=== PATIENT | female | born 1980 | race Caucasian/White ===

== ENCOUNTER 2019-12-25 05:29 | Emergency (ER) | payer OTHER, SELFPAY ==
[2019-12-25] VITALS (19 sets, daily range): BP systolic 83–118; BP diastolic 55–81; PULSE 91–118; RESP 9–32; TEMP 36.7; O2SAT 97–100
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
--- NOTE | 2019-12-25 05:55 | PC.NURSE ---
All belongings removed and placed in secured cabinet.
[2019-12-25 05:59] LABS: Basophils Percent Auto 1.3 % (0.2-1.2); Eosinophils Absolute Auto 0.1 K/mm3 (0-0.3); Eosinophils Percent Auto 1.6 % (0-4.4); Hematocrit 39.5 % (37.0-47.0); Immature Granulocyte Absolute 0.01 K/mm3 (0.00-0.031); Immature Granulocyte Percent A 0.3 % (0-0.5); Lymphocytes Absolute Auto 1.53 K/mm3 (0.9-3.2); Mean Corpuscular HGB Conc 32.9 g/dl (32-36); Mean Corpuscular Hemoglobin 29.9 pg (26-34); Mean Corpuscular Volume 90.8 fl (80-100); Mean Platelet Volume 11.1 fl (7.4-10.4); Monocytes Absolute Auto 0.2 K/mm3 (0.1-0.6); Monocytes Percent Auto 7.8 % (2.6-8.5); Neutrophils Absolute Auto 1.2 K/mm3 (1.3-6.7); Platelet Count Result 280 k/mm3 (150-375); Red Blood Count 4.35 M/mm3 (4.2-5.4); Red Cell Distribution Width 12.2 % (11.5-14.5); White Blood Count 3.1 K/mm3 (4.5-10.0)
--- NOTE | 2019-12-25 05:59 | PC.NURSE ---
Patient attempted to provide urine sample but was unable at this time. Patient aware urine sample is needed, will attempt again. IV fluids currently infusing by EMS.
--- NOTE | 2019-12-25 06:08 | ECG_ITS ---
Measurements Intervals [place] Rate: 119 P: 52 GA: 138 QRS: 70 QRSD: 93 T: 40 QT: 334 QTc: 470 Interpretive Statements SINUS TACHYCARDIA POSSIBLE LEFT ATRIAL ENLARGEMENT ABNORMAL ECG Electronically Signed On 12-25-2019 7:40:22 CDT by Obie Alonso D.O.
[2019-12-25 06:10] LABS: Acetaminophen < 10 ug/mL (10-30); Ethanol 197 mg/dL (<10); Salicylate < 1.0 mg/dL (2-20)
[2019-12-25 06:15] LABS: Alanine Aminotransferase 16 U/L (4-35); Albumin Level 4.3 g/dL (3.5-5.1); Alkaline Phosphatase 79 U/L (38-126); Aspartate Amino Transferase 24 U/L (14-36); Bilirubin,Total 0.2 mg/dL (0.2-1.3); Blood Urea Nitrogen 7 mg/dL (7-17); Calcium 9.2 mg/dL (8.4-10.2); Carbon Dioxide 30 mmol/L (22-30); Chloride 102 mmol/L (98-107); Estimated Glomerular Filt Rate > 60; Glucose 100 mg/dL (65-105); Magnesium 1.6 mg/dL (1.6-2.3); Phosphorus 2.9 mg/dL (2.5-4.5); Potassium 3.3 mmol/L (3.4-5.0); Sodium 139 mmol/L (137-145)
[2019-12-25] MEDS: SODIUM CHLORIDE 0.9% IV 1,000 ML 999 ML IV CONT (06:25)
[2019-12-25] MEDS: THIAMINE HCL 200 MG/2 ML VIAL 100 MG IV PUSH (06:25)
[2019-12-25] MEDS: ONDANSETRON INJ 4 MG/2 ML VIAL IV PUSH (06:25)
--- NOTE | 2019-12-25 07:23 | PC.NURSE ---
Bedside report given to AMBROCIO Jenkins.
[2019-12-25 07:26] LABS: Free T4 Free Thyroxine Reflex 1.01 ng/dL (0.78-2.19)
--- NOTE | 2019-12-25 07:34 | PC.NURSE ---
Care assumed at this time, bedside report given by AMBROCIO Pickett
[2019-12-25 07:43] LABS: Add Urine Microscopic? YES; Appearance Urine Clear (Clear); Bilirubin Urine Negative (Negative); Blood Urine 3+ (Negative); Color Urine Colorless (Yellow); Glucose Urine UA Negative (Negative); Ketones Urine Negative (Negative); Leukocyte Esterase Ur Negative LEU/UL (Negative); Nitrate Urine Negative (Negative); Protein Urine Negative (Negative); RBC Urine 0-2 /hpf (0-2); Specific Grav Ur 1.006 (1.001-1.035); Squamous Epithelial Cell Urine Rare /hpf (Few); Urobilinogen Urine Negative mg/dL (<2.0); WBC Urine 0-3 /hpf
[2019-12-25 07:57] LABS: Amphetamine Screen Urine Negative (Negative); Barbiturate Screen Urine Negative (Negative); Benzodiazepines Screen Urine Negative (Negative); Cannabinoid Screen Urine Negative (Negative); Cocaine Screen Urine Negative (Negative); Methadone Screen Urine Negative (Negative); Opiate Screen Urine Negative (Negative); Phencyclidine Screen Urine Negative (Negative)
--- NOTE | 2019-12-25 08:02 | PC.NURSE ---
Called lab to add on CK.
[2019-12-25 08:15] LABS: Creatine Kinase 137 U/L (30-135)
[2019-12-25 08:30] LABS: Total Triiodothyronine (T3) 1.81 NG/ML (0.97-1.69)
[2019-12-25 11:13] LABS: Ethanol 101 mg/dL (<10)
[2019-12-25] MEDS: LACTATED RINGERS 1,000 ML 999 ML IV CONT (11:24)
[2019-12-25 13:38] LABS: Ethanol 53 mg/dL (<10)
--- NOTE | 2019-12-25 14:06 | PC.NURSE ---
Spoke with poison control. recommends EKG. .
--- NOTE | 2019-12-25 14:09 | ECG_ITS ---
Measurements Intervals [place] Rate: 104 P: 54 AK: 137 QRS: 69 QRSD: 77 T: 63 QT: 344 QTc: 454 Interpretive Statements SINUS TACHYCARDIA BORDERLINE ECG Electronically Signed On 12-25-2019 15:17:35 CDT by Obie Alonso D.O.
[2019-12-25 14:21] LABS: Acetaminophen < 10 ug/mL (10-30); Salicylate < 1.0 mg/dL (2-20)
== END 2019-12-25 16:43 | disposition home or self-care (01) ==
PROVIDERS: Emergency Medicine; Emergency Provider General Practice; PCP Family Medicine
DX: F10.129 Alcohol abuse with intoxication, unspecified (principal); Y90.5 Blood alcohol level of 100-119 mg/100 ml; F98.8 Other specified behavioral and emotional disorders with onset usually occurring in childhood and adolescence; G62.9 Polyneuropathy, unspecified; F40.10 Social phobia, unspecified; R00.0 Tachycardia, unspecified; R94.31 Abnormal electrocardiogram [ECG] [EKG]
CPT/HCPCS: 36415; 51701; 80053; 80307; 81001; 81025; 82550; 82948; 83735; 84100; 84439; 84443; 84480; 85025; 93005; 96361; 96374; 96375; 99284; J2405; J3411; J7030; J7120

== ENCOUNTER 2020-05-14 07:41 | Emergency (ER) | payer OTHER, SELFPAY ==
--- NOTE | ~2020-05-14 | CT_ITS ---
EXAMINATION: CT brain wo con EXAM DATE: 05/14/2020 08:19 INDICATION: Seizure. History of seizure, last one at the age of 21. Lethargy on arrival. TECHNIQUE: Spiral CT of the head was performed without contrast. Axial, coronal and sagittal images were reviewed. The dose-length product (DLP) for this examination was 605.33 mGy-cm. The exposure w as tailored according to patient size, and iterative reconstruction (ASIR) was used as additional dos e reduction technique. Comparison is made to prior examination from 08/12/2017. FINDINGS: There is no acute intraparenchymal hemorrhage. No evidence of intraparenchymal brain mass lesion. No evidence of acute infarction. There is no mass effect or midline shift. The ventricles are normal in size. There are no extra-axial collections. There are no acute calvarial fractures. T he orbits are unremarkable. Soft tissue is unremarkable. The visualized sinuses and mastoid air chip ls are well aerated. IMPRESSION: 1. Normal head CT examination. Reviewed, dictated and finalized at location A.
[2020-05-14 07:40] VITALS: BP 118/91; PULSE 105; RESP 15; TEMP 37.4; O2SAT 97
--- NOTE | 2020-05-14 07:46 | ECG_ITS ---
Measurements Intervals [place] Rate: 102 P: 59 ND: 138 QRS: 56 QRSD: 93 T: 41 QT: 351 QTc: 458 Interpretive Statements SINUS TACHYCARDIA MINIMAL Q WAVES- INF/LAT LEADS BASELINE WANDER- I, III, AVR, AVL, AVF BORDERLINE ECG Electronically Signed On 05-14-2020 11:24:21 CDT by Obie Alonso D.O.
--- NOTE | 2020-05-14 07:52 | ED.SEIZURE ---
HPI - Seizure General Chief Complaint: Seizure Stated Complaint: seizure Time Seen by Provider: 05/14/20 07:46 History of Present Illness HPI Narrative: Witnessed seizure in bed this morning. Seizure lasted 1-2 minutes. included tongue biting. Followed by post-ictal confusion. She has had a previous seizure, but reports that the last one was 18 years ago. She is on gabapentin, it is not clear if this was started for her seizures or not. She does report alcohol use. Last drink was 3 days ago. She becomes evasive when asked for more details about her drinking, but says that she does not drink every day. Seizure History: Yes Related Data Allergies Allergy/AdvReac Type Severity Reaction Status Date / Time No Known Allergies Allergy Verified 05/14/20 07:50 Review of Systems Review of Systems: All systems reviewed & are unremarkable except as noted in HPI and below Constitutional: Constitutional: Denies chills and Denies fever(s) ENT: Comments: tongue pain Cardiovascular: Cardiovascular: Denies chest pain Respiratory: Respiratory: Denies dyspnea Gastrointestinal: Gastrointestinal: Denies abdominal pain, Denies nausea and Denies vomiting Genitourinary: Genitourinary: Denies dysuria Musculoskeletal: Musculoskeletal: Denies back pain Neurologic: Denies dizziness, Reports headache(s) and Denies weakness Psychiatric: Psychiatric: Reports anxiety PMFSH Past Medical History Medical History Acute anxiety ADD (attention deficit disorder) without hyperactivity Allergic rhinitis Neuropathy Sleep disorder Social phobia Family History Family History Sibling Schizophrenia Autism Father Hypertension Sibling Bipolar 1 disorder Grandparent Diabetes mellitus Hypertension Family history of Alzheimer's disease Family history of heart disease in male family member before age 55 Father Depression Hypertension Mother Depression Patient's mother is in good health Sibling Family history of schizophrenia Family history of bipolar disorder Family history of autism Father Hypertension Family history of alcoholism Other Family history of obesity Social History Social History Smoking status: Never smoker Second hand tobacco smoke exposure: No Alcohol intake: former Substance use: never Substance use type: does not use Gender identity (if verbalized by the patient): Female Exam Const: General: no acute distress and alert Orientation/consciousness: patient oriented x3 HENMT: Other: minimal tongue laceration Eyes: Pupils: Equal, round and reactive pupils present EOM: EOMs intact bilaterally Neck: Neck: normal visual inspection and no lymphadenopathy Chest: Chest palpation & inspection: no tenderness Resp: Effort & Inspection: normal respiratory effort Auscultation: clear to auscultation bilaterally, no rales, no rhonchi and no wheezes Cardio: Jugular venous distension: no JVD Rate: tachycardic Rhythm: regular rhythm Heart sounds: no murmurs GI: Inspection: non-distended GI Palp: Yes Soft to palpation and No Tenderness to palpation present (GI) Skin: General skin exam: normal color Neuro: General: patient oriented x3, moves all extremities and CN's II-XI intact bilaterally Speech: normal speech Extrem: General: no edema Psych: Appearance: well kempt Affect: normal affect Course Vital Signs Vital signs: Vital Signs Temperature 37.4 C 05/14/20 07:40 Pulse Rate 105 H 05/14/20 07:40 Respiratory Rate 15 05/14/20 07:40 Blood Pressure 118/91 H 05/14/20 07:40 Pulse Oximetry 97 05/14/20 07:40 Temperature 37.4 C 05/14/20 07:40 Pulse Rate 81 05/14/20 11:43 Respiratory Rate 12 05/14/20 11:43 Blood Pressure 112/92 H 05/14/20 11:43 Pulse Oximetry 97 05/14/20 11:43 [facility] -
[2020-05-14] MEDS: THIAMINE HCL 200 MG/2 ML VIAL 100 MG IV PUSH (08:01)
[2020-05-14] MEDS: SODIUM CHLORIDE 0.9% IV 1,000 ML 999 ML IV CONT (08:01)
[2020-05-14 08:16] LABS: Basophils Absolute Auto 0.1 K/mm3 (0.0-0.1); Basophils Percent Auto 1.1 % (0.2-1.2); Eosinophils Percent Auto 0.4 % (0-4.4); Hemoglobin 15.5 g/dL (12.0-15.0); Immature Granulocyte Absolute 0.18 K/mm3 (0.00-0.031); Immature Granulocyte Percent A 3.9 % (0-0.5); Immature Platelet Fraction Pct 6.3 % (0.9-11.2); Mean Corpuscular HGB Conc 34.4 g/dl (32-36); Mean Corpuscular Hemoglobin 31.2 pg (26-34); Mean Corpuscular Volume 90.5 fl (80-100); Mean Platelet Volume 10.9 fl (7.4-10.4); Monocytes Absolute Auto 0.4 K/mm3 (0.1-0.6); Monocytes Percent Auto 7.6 % (2.6-8.5); Neutrophils Absolute Auto 2.8 K/mm3 (1.3-6.7); Nucleated Red Blood Cells Perc 0.4 % (0.0-0.2); Platelet Count Result 136 k/mm3 (150-375); Red Blood Count 4.97 M/mm3 (4.2-5.4); Red Cell Distribution Width 17.6 % (11.5-14.5); White Blood Count 4.6 K/mm3 (4.5-10.0)
[2020-05-14 08:27] LABS: Alanine Aminotransferase 240 U/L (4-35); Albumin Level 3.7 g/dL (3.5-5.1); Alkaline Phosphatase 254 U/L (38-126); Anion Gap 12.4 mmol/L (7-16); Aspartate Amino Transferase 224 U/L (14-36); Bilirubin,Total 2.7 mg/dL (0.2-1.3); Blood Urea Nitrogen 4 mg/dL (7-17); Calcium 8.3 mg/dL (8.4-10.2); Carbon Dioxide 27 mmol/L (22-30); Chloride 93 mmol/L (98-107); Estimated Glomerular Filt Rate > 60; Glucose 126 mg/dL (65-105); Potassium 3.4 mmol/L (3.4-5.0); Sodium 129 mmol/L (137-145)
[2020-05-14 08:28] LABS: Lactic Acid Reflex 2.9 mmol/L (0.7-2.1)
[2020-05-14 08:40] VITALS: BP 109/83; PULSE 91; RESP 18; O2SAT 99
[2020-05-14 09:04] LABS: Appearance Urine Clear (Clear); Bilirubin Urine 1+ (Negative); Blood Urine 2+ (Negative); Color Urine Yellow (Yellow); Glucose Urine UA Negative (Negative); Ketones Urine Negative (Negative); Leukocyte Esterase Ur Negative LEU/UL (Negative); Nitrate Urine Negative (Negative); Protein Urine Negative (Negative); Specific Grav Ur 1.015 (1.001-1.035)
[2020-05-14 09:10] LABS: Bacteria Urine Trace /hpf; RBC Urine 0-2 /hpf (0-2); Squamous Epithelial Cell Urine Occasional /hpf (Few); WBC Urine 0-3 /hpf
[2020-05-14 09:12] LABS: Add Urine Microscopic? YES
[2020-05-14 09:19] LABS: Amphetamine Screen Urine Negative (Negative); Barbiturate Screen Urine Negative (Negative); Benzodiazepines Screen Urine Negative (Negative); Cannabinoid Screen Urine Negative (Negative); Cocaine Screen Urine Negative (Negative); Methadone Screen Urine Negative (Negative); Opiate Screen Urine Negative (Negative); Phencyclidine Screen Urine Negative (Negative)
[2020-05-14 09:56] VITALS: BP 108/77; PULSE 87; RESP 17; O2SAT 100
[2020-05-14 10:00] LABS: Ammonia < 9 umol/L (9-30)
[2020-05-14 10:57] VITALS: BP 112/83; PULSE 80; O2SAT 98
[2020-05-14] MEDS: levETIRAcetam 1000MG/NACL100ML 1,000 MG/100 ML BAG 400 MG IVPB (11:05)
[2020-05-14 11:12] LABS: Reflex Lactic Acid Yes or No Add Lactic
[2020-05-14 11:43] VITALS: BP 112/92; PULSE 81; RESP 12; O2SAT 97
--- NOTE | 2020-05-29 14:28 | PC.NURSE ---
R[facility]olph infusion complete at 1120 on 05/14/2020. Godfrey Archer RN
== END 2020-05-14 11:44 | disposition home or self-care (01) ==
PROVIDERS: Emergency Provider Emergency Medicine; PCP Family Medicine
DX: G40.909 Epilepsy, unspecified, not intractable, without status epilepticus (principal); F41.9 Anxiety disorder, unspecified; F98.8 Other specified behavioral and emotional disorders with onset usually occurring in childhood and adolescence; G47.9 Sleep disorder, unspecified; F40.10 Social phobia, unspecified; R00.0 Tachycardia, unspecified
CPT/HCPCS: 36415; 70450; 80053; 80307; 81001; 82140; 83605; 85025; 85055; 93005; 96361; 96374; 96375; 99284; J1953; J3411; J7030

== ENCOUNTER 2020-10-01 00:33 | Emergency (ER) | payer OTHER, SELFPAY ==
[2020-10-01] VITALS (8 sets, daily range): BP systolic 70–107; BP diastolic 33–81; PULSE 79–85; RESP 11–18; TEMP 36.8–37; O2SAT 95–100
[2020-10-01] MEDS: LACTATED RINGERS 1,000 ML 999 ML IV CONT (01:09)
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
[2020-10-01 01:42] LABS: Basophils Percent Auto 0.6 % (0.2-1.2); Eosinophils Absolute Auto 0.1 K/mm3 (0-0.3); Eosinophils Percent Auto 1.9 % (0-4.4); Hematocrit 32.9 % (37.0-47.0); Hemoglobin 10.8 g/dL (12.0-15.0); Immature Granulocyte Absolute 0.03 K/mm3 (0.00-0.031); Immature Granulocyte Percent A 0.6 % (0-0.5); Lymphocytes Absolute Auto 1.24 K/mm3 (0.9-3.2); Lymphocytes Percent Auto 26.3 % (18.3-44.2); Mean Corpuscular HGB Conc 32.8 g/dl (32-36); Mean Corpuscular Hemoglobin 31.2 pg (26-34); Mean Corpuscular Volume 95.1 fl (80-100); Mean Platelet Volume 10.2 fl (7.4-10.4); Monocytes Absolute Auto 0.3 K/mm3 (0.1-0.6); Monocytes Percent Auto 5.7 % (2.6-8.5); Neutrophils Absolute Auto 3.1 K/mm3 (1.3-6.7); Neutrophils Percent Auto 64.9 % (45.5-73.1); Platelet Count Result 169 k/mm3 (150-375); Red Blood Count 3.46 M/mm3 (4.2-5.4); Red Cell Distribution Width 13.2 % (11.5-14.5); White Blood Count 4.7 K/mm3 (4.5-10.0)
[2020-10-01 01:49] LABS: Alanine Aminotransferase 121 U/L (4-35); Albumin Level 3.3 g/dL (3.5-5.1); Alkaline Phosphatase 88 U/L (38-126); Anion Gap 4 mmol/L (8-16); Aspartate Amino Transferase 88 U/L (14-36); Bilirubin,Total 0.2 mg/dL (0.2-1.3); Blood Urea Nitrogen 8 mg/dL (7-17); Calcium 8.1 mg/dL (8.4-10.2); Carbon Dioxide 34 mmol/L (22-30); Chloride 106 mmol/L (98-107); Estimated CRCL calculation 78 ml/min; Estimated Glomerular Filt Rate > 60; Glucose 79 mg/dL (65-105); Potassium 4.1 mmol/L (3.4-5.0); Sodium 144 mmol/L (137-145)
--- NOTE | 2020-10-01 01:54 | PC.NURSE ---
Patient not willing to provide urine specimen. BALBINA Tanner notified and reports it is okay to hold off on urine specimen at this time.
[2020-10-01 01:55] LABS: Ethanol 263 mg/dL (<10)
[2020-10-01] MEDS: SODIUM CHLORIDE 0.9% IV 1,000 ML 999 ML IV CONT (03:17)
--- NOTE | 2020-10-01 03:18 | PC.NURSE ---
Patient's 3rd liter of fluids started at this time.
--- NOTE | 2020-10-01 04:51 | PC.NURSE ---
Patient ambulated into hallway after removing IV, stating I just want to go back to my hotel. Please send me back to my hotel. Patient instructed to go back into room because she was dripping blood onto the ED floor. Patient stated, no I am not going in there. I'm allowed to be an asshole. Patient was then placed back into bed. Floor being cleaned. EDP Flores informed and states patient can be discharged if she can find a ride home.
== END 2020-10-01 06:00 | disposition home or self-care (01) ==
PROVIDERS: Emergency Provider Emergency Medicine; PCP Family Medicine
DX: F10.129 Alcohol abuse with intoxication, unspecified (principal); U07.1 COVID-19; G62.9 Polyneuropathy, unspecified; G47.9 Sleep disorder, unspecified
CPT/HCPCS: 36415; 80053; 80307; 85025; 96360; 96361; 99283; J7030; J7120

== ENCOUNTER 2020-10-08 05:38 | Emergency (ER) | payer OTHER, SELFPAY ==
[2020-10-08] VITALS (35 sets, daily range): BP systolic 86–118; BP diastolic 46–87; PULSE 70–88; RESP 6–25; TEMP 35.7; O2SAT 66–100
--- NOTE | ~2020-10-08 | CT_ITS ---
EXAMINATION: CT brain wo con, CT cervical spine wo con EXAM DATE: 10/08/2020 06:16 INDICATION: Fall, head injury. TECHNIQUE: Spiral CT of the head was performed without contrast. Axial, coronal and sagittal images were reviewed. Spiral CT of the cervical spine was performed without contrast. Axial images were rev iewed. Coronal and sagittal reformatted images were also reviewed. The dose-length product (DLP) fo r this examination was 529.67 (accession [id number]), 291.49 (accession [id number]) mGy-cm. The exposure was tailored according to patient size, and iterative reconstruction (ASIR) was used as additional dose reduction technique. Comparison is made to prior examination from 06/14/2020. FINDINGS: HEAD CT: There is no acute intraparenchymal hemorrhage. No evidence of intraparenchymal brain mass l esion. No evidence of acute infarction. There is no mass effect or midline shift. There is no obstru ctive hydrocephalus suspected. There are no extra-axial collections. There are no acute calvarial f ractures. The orbits are unremarkable. Soft tissue is unremarkable. The visualized sinuses and mas toid air cells are well aerated. CERVICAL CT: There is no evidence of acute cervical fracture. The odontoid process is intact. Pre- dens space is normal. Prevertebral soft tissue is normal. There are no soft tissue abnormalities id entified. There is no disc space widening or traumatic vertebral body subluxation suspected. Verteb ral body and disc heights are well-maintained. A detailed level by level evaluation of spondylosis can be added as addendum if requested. IMPRESSION: No acute intracranial findings or cervical fracture. Reviewed, dictated and finalized at location A. DRIVER IMPRESSION: No acute intracranial findings or cervical fracture.
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
[2020-10-08] MEDS: SODIUM CHLORIDE 0.9% IV 1,000 ML 999 ML IV CONT ×2 (05:54→06:58)
--- NOTE | 2020-10-08 06:00 | PC.NURSE ---
Pt placed on bed alarm and yellow sign placed outside of room. Pt resting calmly at this time.
[2020-10-08 06:04] LABS: Basophils Absolute Auto 0.1 K/mm3 (0.0-0.1); Basophils Percent Auto 1.8 % (0.2-1.2); Eosinophils Absolute Auto 0.1 K/mm3 (0-0.3); Eosinophils Percent Auto 3.2 % (0-4.4); Hematocrit 36.1 % (37.0-47.0); Immature Granulocyte Absolute 0.04 K/mm3 (0.00-0.031); Immature Granulocyte Percent A 0.9 % (0-0.5); Lymphocytes Absolute Auto 2.14 K/mm3 (0.9-3.2); Lymphocytes Percent Auto 48.7 % (18.3-44.2); Mean Corpuscular HGB Conc 33.2 g/dl (32-36); Mean Corpuscular Hemoglobin 30.5 pg (26-34); Mean Corpuscular Volume 91.6 fl (80-100); Mean Platelet Volume 10.1 fl (7.4-10.4); Monocytes Absolute Auto 0.3 K/mm3 (0.1-0.6); Monocytes Percent Auto 7.1 % (2.6-8.5); Neutrophils Absolute Auto 1.7 K/mm3 (1.3-6.7); Neutrophils Percent Auto 38.3 % (45.5-73.1); Platelet Count Result 296 k/mm3 (150-375); Red Blood Count 3.94 M/mm3 (4.2-5.4); Red Cell Distribution Width 14.7 % (11.5-14.5); White Blood Count 4.4 K/mm3 (4.5-10.0)
[2020-10-08 06:20] LABS: Atypical Lymphocytes Present; Hypochromasia 1+ (NORMAL); Platelet Estimate Adequate (Adequate); Stomatocytes 1+ (NORMAL)
[2020-10-08 06:21] LABS: Alanine Aminotransferase 67 U/L (4-35); Alkaline Phosphatase 120 U/L (38-126); Anion Gap 11 mmol/L (8-16); Aspartate Amino Transferase 69 U/L (14-36); Bilirubin,Total 0.3 mg/dL (0.2-1.3); Blood Urea Nitrogen 6 mg/dL (7-17); Calcium 8.5 mg/dL (8.4-10.2); Carbon Dioxide 30 mmol/L (22-30); Chloride 103 mmol/L (98-107); Estimated CRCL calculation 98 ml/min; Estimated Glomerular Filt Rate > 60; Glucose 90 mg/dL (65-105); Potassium 3.6 mmol/L (3.4-5.0); Sodium 144 mmol/L (137-145)
[2020-10-08 06:49] LABS: Ethanol 453 mg/dL (<10)
--- NOTE | 2020-10-08 06:59 | PC.NURSE ---
Pt attempting to climb out of bed and pulling at lines. Sitter placed at bedside.
--- NOTE | 2020-10-08 07:26 | PC.NURSE ---
Pt cursing at staff and attempting to remove wheel blocker and pull IV out. Sitter at bedside.
--- NOTE | 2020-10-08 08:14 | PC.NURSE ---
Continues to attempt to get out of bed and pull at IV and monitor. ERP aware.
--- NOTE | 2020-10-08 08:34 | PC.NURSE ---
Patient given 50 mg ketamine IM and 25 mg given IVP at this time. Verbal order Dr. Penny.
--- NOTE | 2020-10-08 09:12 | PC.NURSE ---
Awake. Attempting to get out of bed. Argues and curses at staff.
== END 2020-10-08 13:26 | disposition home or self-care (01) ==
PROVIDERS: Emergency Medicine; Emergency Provider General Practice; PCP Family Medicine
DX: F10.129 Alcohol abuse with intoxication, unspecified (principal); Y90.8 Blood alcohol level of 240 mg/100 ml or more
CPT/HCPCS: 36415; 70450; 72125; 80053; 80307; 85025; 96360; 96361; 99284; J7030

== ENCOUNTER 2021-03-12 12:36 | Emergency (ER) | payer OTHER, SELFPAY ==
[2021-03-12 12:39] VITALS: BP 95/71; PULSE 77; RESP 12; O2SAT 96
--- NOTE | 2021-03-12 12:55 | ECG_ITS ---
Measurements Intervals [place] Rate: 75 P: 62 PA: 134 QRS: 72 QRSD: 87 T: 71 QT: 426 QTc: 476 Interpretive Statements SINUS RHYTHM NORMAL ECG Electronically Signed On 03-12-2021 19:46:28 CDT by Obie Alonso D.O.
[2021-03-12 13:05] LABS: Basophils Absolute Auto 0.1 K/mm3 (0.0-0.1); Eosinophils Absolute Auto 0.1 K/mm3 (0-0.3); Eosinophils Percent Auto 2.5 % (0-4.4); Hematocrit 35.7 % (37.0-47.0); Hemoglobin 12.1 g/dL (12.0-15.0); Immature Granulocyte Absolute 0.02 K/mm3 (0.00-0.031); Immature Granulocyte Percent A 0.6 % (0-0.5); Lymphocytes Absolute Auto 2.01 K/mm3 (0.9-3.2); Lymphocytes Percent Auto 56.9 % (18.3-44.2); Mean Corpuscular HGB Conc 33.9 g/dl (32-36); Mean Corpuscular Hemoglobin 31.5 pg (26-34); Mean Platelet Volume 9.8 fl (7.4-10.4); Monocytes Absolute Auto 0.1 K/mm3 (0.1-0.6); Monocytes Percent Auto 3.1 % (2.6-8.5); Neutrophils Absolute Auto 1.2 K/mm3 (1.3-6.7); Neutrophils Percent Auto 34.9 % (45.5-73.1); Platelet Count Result 232 k/mm3 (150-375); Red Blood Count 3.84 M/mm3 (4.2-5.4); Red Cell Distribution Width 13.4 % (11.5-14.5); White Blood Count 3.5 K/mm3 (4.5-10.0)
--- NOTE | 2021-03-12 13:11 | ED.SEIZURE ---
HPI - Seizure General Chief Complaint: Seizure Stated Complaint: seizure Time Seen by Provider: 03/12/21 13:03 Source: patient, EMS and RN notes reviewed Mode of arrival: EMS History of Present Illness HPI Narrative: Patient is 40 years old white female brought to the emergency room by ambulance from [facility] after having a seizure lasted for about 30 seconds. Patient arrived without friends or family members, postictal. Few minutes later patient became awake, alert and oriented x3 initial complaint is feeling tired all over and does not want any blood work-up or CAT scan of the head. She is telling me that she had similar symptoms every 2 to 3 days. History of seizure on gabapentin which is prescribed by her family physician, never been seen by a neurologist Patient denies any fever, chills, nausea, vomiting, headache, pain or any injury. Seizure History: Yes Related Data Allergies Allergy/AdvReac Type Severity Reaction Status Date / Time No Known Allergies Allergy Verified 03/12/21 13:22 Review of Systems Review of Systems: Narrative: CONSTITUTIONAL: Denies fever, chills, or sweats. EYES: Denies visual changes, redness, or discharge. ENT: Denies rhinorrhea, congestion, sore throat, or otalgia. CARDIOVASCULAR: Denies chest pain, palpitations, or edema. RESPIRATORY: Denies cough or dyspnea. GASTROINTESTINAL: Denies abdominal pain, nausea, vomiting, or diarrhea. GENITOURINARY: Denies dysuria or hematuria. SKIN: Denies rash or itching. MUSCULOSKELETAL: Denies back pain, joint pain, or myalgia. NEUROLOGIC: Denies headache, numbness, or weakness. PSYCHIATRIC: Denies anxiety or depression. [facility] Past Medical History Medical History Acute anxiety ADD (attention deficit disorder) without hyperactivity Allergic rhinitis JULIUS (generalized anxiety disorder) Major depressive disorder Neuropathy Sleep disorder Social phobia Family History Family History Sibling Schizophrenia Autism Father Hypertension Sibling Bipolar 1 disorder Grandparent Diabetes mellitus Hypertension Family history of Alzheimer's disease Family history of heart disease in male family member before age 55 Father Depression Hypertension Mother Depression Patient's mother is in good health Sibling Family history of schizophrenia Family history of bipolar disorder Family history of autism Father Hypertension Family history of alcoholism Other Family history of obesity Social History Social History Social History: Smoking status: Never smoker Second hand tobacco smoke exposure: No Alcohol intake: former Substance use: never Substance use type: does not use Additional living arrangements comments: pt stated she lives in a sober living home Gender identity (if verbalized by the patient): Female Exam Narrative: Exam Narrative: General appearance: Well-developed, well-nourished Skin: Normal color Head: Normocephalic, nontraumatic Eyes: Clear conjunctiva ENT: Oropharynx normal, ears normal, nose normal Neck: Supple, nontender Chest and respiratory: Airway patent, no respiratory distress, no accessory muscle use Heart: Regular rate/rhythm Abdomen: Soft, nontender, no organomegaly, quiet bowel sounds Vascular: Normal peripheral pulses, normal capillary refill. Musculoskeletal: Normal range of motion, nontender back Neurologic: Alert and oriented ?3, SOLE LAYER is normal as tested, no gross motor deficit Course Course Emergency Course: Stable Vital Signs Vital signs: Vital
[2021-03-12 13:14] LABS: Anion Gap 9 mmol/L (8-16); Blood Urea Nitrogen 7 mg/dL (7-17); Calcium 8.5 mg/dL (8.4-10.2); Carbon Dioxide 32 mmol/L (22-30); Chloride 110 mmol/L (98-107); Estimated CRCL calculation 93 ml/min; Estimated Glomerular Filt Rate > 60; Glucose 86 mg/dL (65-105); Potassium 3.4 mmol/L (3.4-5.0); Sodium 151 mmol/L (137-145)
--- NOTE | 2021-03-12 13:20 | PC.NURSE ---
Pt requested to call her dad for picker / packer, called pts dad for pickup. Dad of patient states he is in [place] and can't pick her up. Updated pt. I asked pt if she has anyone else who could pick her up, pt states no.
[2021-03-12 13:22] VITALS: PULSE 86
[2021-03-12] MEDS: SODIUM CHLORIDE 0.9% IV 1,000 ML 999 ML IV CONT (13:54)
--- NOTE | 2021-03-12 13:55 | PC.NURSE ---
Called down to Lab for order add on.
[2021-03-12 14:07] LABS: Alanine Aminotransferase 22 U/L (4-35); Albumin Level 3.7 g/dL (3.5-5.1); Alkaline Phosphatase 95 U/L (38-126); Aspartate Amino Transferase 56 U/L (14-36); Bilirubin,Total 0.2 mg/dL (0.2-1.3)
[2021-03-12 14:34] LABS: Amphetamine Screen Urine Negative (Negative); Barbiturate Screen Urine Negative (Negative); Benzodiazepines Screen Urine Negative (Negative); Cannabinoid Screen Urine Negative (Negative); Cocaine Screen Urine Negative (Negative); Methadone Screen Urine Negative (Negative); Opiate Screen Urine Negative (Negative); Phencyclidine Screen Urine Negative (Negative)
[2021-03-12 14:40] VITALS: BP 92/65; PULSE 65; RESP 18; O2SAT 98
[2021-03-14 18:22] LABS: Methyl Alcohol Level None Detected (None Detected)
== END 2021-03-12 15:30 | disposition home or self-care (01) ==
PROVIDERS: Emergency Provider Emergency Medicine; PCP Family Medicine
DX: R56.9 Unspecified convulsions (principal); F98.8 Other specified behavioral and emotional disorders with onset usually occurring in childhood and adolescence; F41.1 Generalized anxiety disorder; F32.9 Major depressive disorder, single episode, unspecified; G62.9 Polyneuropathy, unspecified; G47.9 Sleep disorder, unspecified
CPT/HCPCS: 36415; 80048; 80076; 80307; 81025; 84600; 85025; 93005; 96360; 99284; J7030

== ENCOUNTER 2021-07-10 15:19 | Inpatient (IN) | payer OTHER, SELFPAY ==
--- NOTE | ~2021-07-10 | XR_ITS ---
EXAMINATION: XR chest port-a-cath/central EXAM DATE: 07/11/2021 00:20 INDICATION: Central line placement. TECHNIQUE: Portable AP frontal chest x-ray was obtained. Comparison is made to prior examination from 11/16/2015. FINDINGS: No central line identified. Some chronic hyperinflation. The lungs are clear. There are no pleural effusions. The cardiomediastinal silhouette is within normal limits. There is no pneumotho rax suspected. There is no left 7th rib fracture posteriorly. IMPRESSION: 1. No acute cardiopulmonary findings. 2. Hyperinflation. Reviewed, dictated and finalized at location A.
[2021-07-10 15:30] VITALS: BP 91/59; PULSE 76; RESP 14; TEMP 36.4; O2SAT 99
--- NOTE | 2021-07-10 16:00 | PC.NURSE ---
Patient found attempting to eat another patient's tray at this time in the nursing station, patient asked to please go back to her room and that we would need to get her a tray ordered. patient then started yelling and cussing stating, Your a fucking bitch and your a lie. I have been here for hours and have not been treated. Patient informed that she had been seen by the doctor and that she would need to go back to her room for more testing. Patient then yelling more, Your a fucking bitch, I dont have to do anything you say, I don't believe a word you say. security called at this time due to patient escalation, patient taken back to room 1 by security.
[2021-07-10 16:31] LABS: Basophils Percent Auto 0.8 % (0.2-1.2); Eosinophils Absolute Auto 0.1 K/mm3 (0-0.3); Eosinophils Percent Auto 1.9 % (0-4.4); Hemoglobin 10.7 g/dL (12.0-15.0); Immature Granulocyte Absolute 0.02 K/mm3 (0.00-0.031); Immature Granulocyte Percent A 0.6 % (0-0.5); Lymphocytes Absolute Auto 2.28 K/mm3 (0.9-3.2); Lymphocytes Percent Auto 63.5 % (18.3-44.2); Mean Corpuscular HGB Conc 34.5 g/dl (32-36); Mean Corpuscular Hemoglobin 32.2 pg (26-34); Mean Corpuscular Volume 93.4 fl (80-100); Mean Platelet Volume 9.4 fl (7.4-10.4); Monocytes Absolute Auto 0.3 K/mm3 (0.1-0.6); Monocytes Percent Auto 9.2 % (2.6-8.5); Neutrophils Absolute Auto 0.9 K/mm3 (1.3-6.7); Platelet Count Result 141 k/mm3 (150-375); Red Blood Count 3.32 M/mm3 (4.2-5.4); Red Cell Distribution Width 15.7 % (11.5-14.5); White Blood Count 3.6 K/mm3 (4.5-10.0)
[2021-07-10 16:49] LABS: INR 0.9; Prothrombin Time 12.2 Seconds (11.1-14.7)
[2021-07-10 16:50] LABS: Partial Thromboplastin Time 26.9 SECONDS (22.3-36.8)
[2021-07-10 16:54] LABS: Ethanol 380 mg/dL (<10)
--- NOTE | 2021-07-10 17:00 | ED.WEAKNESS ---
HPI - Weakness General Chief complaint: Weakness <Teagan White PA-C - Last Filed: 07/11/21 00:25> Stated complaint: ALCOHOL INGESTION <DALLAS Lima Last Filed: 07/11/21 00:25> Time Seen by Provider: 07/10/21 16:09 <Teagan White PA-C - Last Filed: 07/11/21 00:25> Source: patient <DALLAS Lima Last Filed: 07/11/21 00:25> Mode of arrival: EMS <DALLAS Lima Last Filed: 07/11/21 00:25> Limitations: intoxication <DALLAS Lima Last Filed: 07/11/21 00:25> History of Present Illness HPI Narrative: This is a 40 year old female that presents to the ER for alcohol intoxication. Reports her dad called EMS as he was worried about her. Reports history of alcohol abuse and anorexia. Reports she hasn't eaten in over a day and is very hungry. She has no other complaints currently. Denies thoughts of harming herself or anyone else. <Teagan White PA-C - Last Filed: 07/11/21 00:25> Related Data Allergies/Adverse reactions: Allergies Allergy/AdvReac Type Severity Reaction Status Date / Time No Known Allergies Allergy Verified 03/12/21 13:22 <Teagan White PA-C - Last Filed: 07/11/21 00:25> Review of Systems Review of Systems: CONSTITUTIONAL: Denies fever GASTROINTESTINAL: Denies abdominal pain, nausea, vomiting <DALLAS Lima Last Filed: 07/11/21 00:25> All systems reviewed & are unremarkable except as noted in HPI and below <Teagan White PA-C - Last Filed: 07/11/21 00:25> [facility] Past Medical History Medical History: Medical History Acute anxiety ADD (attention deficit disorder) without hyperactivity Allergic rhinitis JULIUS (generalized anxiety disorder) Major depressive disorder Neuropathy Sleep disorder Social phobia <Teagan White PA-C - Last Filed: 07/11/21 00:25> Family History Family History: Family History Sibling Schizophrenia Autism Father Hypertension Sibling Bipolar 1 disorder Grandparent Diabetes mellitus Hypertension Family history of Alzheimer's disease Family history of heart disease in male family member before age 55 Father Depression Hypertension Mother Depression Patient's mother is in good health Sibling Family history of schizophrenia Family history of bipolar disorder Family history of autism Father Hypertension Family history of alcoholism Other Family history of obesity <Teagan White PA-C - Last Filed: 07/11/21 00:25> Social History Social History: Social History Social History: Smoking status: Never smoker Second hand tobacco smoke exposure: No Alcohol intake: former Alcohol use details: pt drank alcohol 8 days ago Substance use: never Substance use type: does not use Additional living arrangements comments: pt stated she lives in a sober living home Gender identity (if verbalized by the patient): Female Sexual Orientation (if Verbalized by the Patient): Straight or Heterosexual <Teagan White PA-C - Last Filed: 07/11/21 00:25> Exam Narrative: GENERAL: Well-appearing, thin, and in no acute distress. HEAD: Normocephalic, atraumatic. EYES: PERRLA and EOMI. ENT: Nares clear, no rhinorrhea or epistaxis. Mucous membranes moist. Oropharynx without tonsillar hypertrophy exudate or other lesions. Bilateral TMs pearly chow non-bulging NECK: Supple. No adenopathy or masses. CHEST: Clear to auscultation. No respiratory distress. No wheezes rales or rhonchi HEART: Regular rate and rhythm. No murmur heard. Normal peripheral pulses. ABDOMEN: Soft, nontender, nondistended, normal active bowel sounds. EXTREMITIES: Normal range of motion. No edema. SKIN: Warm, dry, no rash. NEURO: No focal deficits. Alert and oriented x3. PSYCH: Normal mood and affect
[2021-07-10 17:04] LABS: Hypochromasia 1+ (NORMAL); Platelet Estimate Adequate (Adequate); Stomatocytes 1+ (NORMAL)
[2021-07-10] MEDS: SODIUM CHLORIDE 0.9% IV 1,000 ML 999 ML IV CONT (17:08)
--- NOTE | 2021-07-10 17:37 | PC.NURSE ---
pt yelling at staff, I want to fucking leave. Fucking feed me . pt asked if she would like this RN to complete the orders or if she'd like to leave. pt states she will stay.
--- NOTE | 2021-07-10 17:42 | PC.NURSE ---
pt ripped out IV and it was found intact in trash can. pt aggressive towards staff. security at bedside. patient told she either would allow us to treat her or be escorted out by security. pt decided to get back into stretcher and allow treatment.
[2021-07-10 18:22] LABS: Add Urine Microscopic? YES; Appearance Urine Clear (Clear); Bacteria Urine Trace /hpf; Bilirubin Urine Negative (Negative); Blood Urine Negative (Negative); Color Urine Straw (Yellow); Glucose Urine UA Negative (Negative); Ketones Urine Negative (Negative); Leukocyte Esterase Ur Trace LEU/UL (Negative); Nitrate Urine Negative (Negative); Protein Urine Negative (Negative); RBC Urine 0-2 /hpf (0-2); Squamous Epithelial Cell Urine Occasional /hpf (Few); Urobilinogen Urine Negative mg/dL (<2.0); WBC Urine 16-20 /hpf
[2021-07-10 18:29] LABS: Amphetamine Screen Urine Negative (Negative); Barbiturate Screen Urine Negative (Negative); Benzodiazepines Screen Urine Negative (Negative); Cannabinoid Screen Urine Negative (Negative); Cocaine Screen Urine Negative (Negative); Methadone Screen Urine Negative (Negative); Opiate Screen Urine Negative (Negative); Phencyclidine Screen Urine Negative (Negative)
[2021-07-10 18:42] LABS: Alanine Aminotransferase 22 U/L (4-35); Albumin Level 3.2 g/dL (3.5-5.1); Alkaline Phosphatase 87 U/L (38-126); Anion Gap 2 mmol/L (8-16); Aspartate Amino Transferase 29 U/L (14-36); Bilirubin,Total 0.3 mg/dL (0.2-1.3); Blood Urea Nitrogen 3 mg/dL (7-17); Calcium 7.6 mg/dL (8.4-10.2); Carbon Dioxide 38 mmol/L (22-30); Chloride 105 mmol/L (98-107); Estimated Glomerular Filt Rate > 60; Glucose 83 mg/dL (65-110); Lipase 330 U/L (23-300); Potassium 2.9 mmol/L (3.4-5.0); Sodium 145 mmol/L (137-145)
[2021-07-10] MEDS: POTASSIUM CHLORIDE 20 MEQ TABLET 40 MEQ PO (19:01)
--- NOTE | 2021-07-10 19:02 | PC.NURSE ---
pt cooperating and resting comfortably in the stretcher.
[2021-07-10 19:26] VITALS: BP 83/55; PULSE 95; RESP 14; O2SAT 100
[2021-07-10] MEDS: LACTATED RINGERS 1,000 ML 999 ML IV CONT (21:31)
[2021-07-10 23:07] VITALS: BP 80/40; PULSE 85; RESP 14; O2SAT 98
[2021-07-10 23:37] LABS: Magnesium 1.8 mg/dL (1.6-2.3)
[2021-07-11] VITALS (14 sets, daily range): BP systolic 80–102; BP diastolic 54–72; PULSE 64–88; RESP 12–16; TEMP 36.1–36.8; O2SAT 99–100; BMI 16.7
[2021-07-11] MEDS: DOPamine 400 MG/D5W 250 ML 400 MG/250 ML BAG IV CONT (00:11)
--- NOTE | 2021-07-11 00:47 | ECG_ITS ---
Measurements Intervals [place] Rate: 63 P: 53 [place]: 126 QRS: 75 QRSD: 87 T: 68 QT: 452 QTc: 466 Interpretive Statements SINUS RHYTHM NORMAL ECG Electronically Signed On 07-11-2021 7:49:47 CDT by Obie Alonso D.O.
[2021-07-11] MEDS: ONDANSETRON INJ 4 MG/2 ML VIAL IV PUSH ×2 (01:25→04:03)
[2021-07-11 01:40] LABS: Lactic Acid Reflex 1.1 mmol/L (0.7-2.1)
--- NOTE | 2021-07-11 03:00 | PM.IMHP ---
H&P: HPI History of Present Illness Date/Time: 07/11/21 03:00 Chief Complaint: Alcoholism Narrative: 40 year old female with past medical history of anorexia nervosa, anxiety, depression and chronic alcohol abuse who presented to the ER due to anorexia and alcoholism. The patient's father was concerned that the patient was not taking care of herself and requested EMS do a safety check. The patient was found at the comfort in where she had been living for the last couple of weeks. The patient had not eaten in over 24 hours and was reporting that she is very hungry. She reports that she had not drink alcohol for about 5 days but then drank about a pint of vodka over the last 24 hours. Her last drink was around 3:00 p.m. on the . She has had history of alcohol withdrawal seizures multiple times since May 2020. Her last ER visit for alcohol withdrawal seizure was 03/12/2021. She has had multiple ER visits due to alcohol complication since September 2020. She has had various stents and sober living environments with a last stent of 10/08/2020. She has drank at least a pt of vodka a day 18 of the 27 days this month. She denied having any nausea, vomiting, loss of appetite or changes in bowel habits. She reports that she usually eats once a day but just does not eat enough food. She has struggled for many years with anorexia nervosa. She reports mostly food restriction. She denies diuretic or laxative use. She has been using alcohol heavily for at least a year and a half. She denies any fevers or chills. She tested positive for COVID-19 1 year ago but had no symptoms. She received the Pfizer vaccine with her 2nd vaccine approximately 5 months ago. She denies any chest pain or shortness of breath. She has been having some lightheadedness when she stands up. She has not had any loss of consciousness. She denies any intended self-harm. She reports that she drinks to control her anxiety. She reports that she used to binge drink on a somewhat infrequent occasion but about a urine a half ago started going through a messy divorce. She she is still in the process of divorce mediation. Her 6 and 9-year-old daughter lives with her . 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 She reports that she was living with friends until the last few weeks at which time she moved to the [facility]. However I found the ER documents that the patient had been living in a hotel at least intermittently since last September. Review of Systems Review of Systems: 12 systems were reviewed with pertinent positives and negatives per HPI. Except as documented in the HPI, all other systems were reviewed and are negative. [facility] Past Medical History Medical History (Updated 07/11/21 @ 07:15 by Jessica Feng DO) ADD (attention deficit disorder) without hyperactivity Allergic rhinitis COVID-19 (09/2020) COVID-19 vaccine series completed February 2021 JULIUS (generalized anxiety disorder) Major depressive disorder Neuropathy Sleep disorder Social phobia Surgical History Surgical History (Updated 07/11/21 @ 04:03 by Jessica Feng DO) History of 2 sections History of tonsillectomy Family History Family History Sibling Schizophrenia Autism Father Hypertension Sibling Bipolar 1 disorder Grandparent Diabetes mellitus Hypertension Family history of Alzheimer's disease Family history of heart disease in male family member before age 55 Father Depression Hypertension Mother Depression Patient's mother is in good health Sibling Family history of schizophrenia Family history of bipolar disorder Family history of autism Father Hypertension Family history of alcoholism Other Family history of obesity
[2021-07-11] MEDS: SODIUM CHLORIDE 0.9% IV 1,000 ML 999 ML IV CONT (04:03)
[2021-07-11] MEDS: SODIUM CHLORIDE 0.9% IV 1,000 ML 200 ML IV CONT (04:15)
--- NOTE | 2021-07-11 04:30 | ADMGEN ---
This patient, Mily Mai, was admitted to Intensive Care Unit-8. Patient/family oriented to hospital policies and general routines including ID bracelet, bed and alarms, visiting hours, pain management, procedures, bathroom and other care routines, personal items, smoking policy, room service/diet, and visiting hours. Information on how to activate the Rapid Response Team has been discussed. Patient/Family are encouraged to report perceived risks to care and to ask questions if they do not understand what they are told or what they should do.
[2021-07-11] MEDS: THIAMINE HCL 200 MG/2 ML VIAL 100 MG IV PUSH ×2 (05:19→12:20)
[2021-07-11] MEDS: FOLIC ACID 1 MG/0.2 ML INJ IV PUSH ×2 (05:26→13:26)
[2021-07-11 05:45] LABS: Basophils Absolute Auto 0.1 K/mm3 (0.0-0.1); Basophils Percent Auto 1.4 % (0.2-1.2); Eosinophils Absolute Auto 0.1 K/mm3 (0-0.3); Hematocrit 30.8 % (37.0-47.0); Hemoglobin 10.3 g/dL (12.0-15.0); Immature Granulocyte Absolute 0.02 K/mm3 (0.00-0.031); Immature Granulocyte Percent A 0.6 % (0-0.5); Lymphocytes Absolute Auto 1.71 K/mm3 (0.9-3.2); Lymphocytes Percent Auto 48.3 % (18.3-44.2); Mean Corpuscular HGB Conc 33.4 g/dl (32-36); Mean Corpuscular Hemoglobin 32.4 pg (26-34); Mean Corpuscular Volume 96.9 fl (80-100); Mean Platelet Volume 9.7 fl (7.4-10.4); Monocytes Absolute Auto 0.2 K/mm3 (0.1-0.6); Monocytes Percent Auto 6.5 % (2.6-8.5); Neutrophils Absolute Auto 1.5 K/mm3 (1.3-6.7); Neutrophils Percent Auto 41.2 % (45.5-73.1); Platelet Count Result 139 k/mm3 (150-375); Red Blood Count 3.18 M/mm3 (4.2-5.4); Red Cell Distribution Width 16.1 % (11.5-14.5); White Blood Count 3.5 K/mm3 (4.5-10.0)
[2021-07-11 05:56] LABS: Alanine Aminotransferase 21 U/L (4-35); Albumin Level 2.9 g/dL (3.5-5.1); Alkaline Phosphatase 81 U/L (38-126); Anion Gap 1 mmol/L (8-16); Aspartate Amino Transferase 28 U/L (14-36); Bilirubin,Total 0.4 mg/dL (0.2-1.3); Blood Urea Nitrogen 6 mg/dL (7-17); Calcium 7.4 mg/dL (8.4-10.2); Carbon Dioxide 31 mmol/L (22-30); Chloride 107 mmol/L (98-107); Estimated CRCL calculation 89 ml/min; Estimated Glomerular Filt Rate > 60; Glucose 120 mg/dL (65-110); Magnesium 1.4 mg/dL (1.6-2.3); Phosphorus 2.1 mg/dL (2.5-4.5); Potassium 3.4 mmol/L (3.4-5.0); Sodium 139 mmol/L (137-145)
[2021-07-11 07:07] LABS: Thyroid Stimulating Hormone Reflex 0.598 uIU/mL (0.465-4.68)
[2021-07-11] MEDS: MAGNESIUM SULF 4 GM/WATER100ML 4 GM/100 ML BAG IVPB (08:24)
[2021-07-11] MEDS: ESCITALOPRAM OXALATE 10 MG TABLET 20 MG PO (08:25)
[2021-07-11] MEDS: buPROPion HCL XL (24 HR) 150 MG TABCR 300 MG PO (08:25)
[2021-07-11] MEDS: busPIRone HCL 5 MG TABLET PO ×2 (08:25→19:19)
[2021-07-11] MEDS: POTASSIUM PHOS/SODIUM PHOS 250 MG TABLET PO (08:25)
[2021-07-11] MEDS: PANTOPRAZOLE 40 MG TABLET PO (08:25)
[2021-07-11] MEDS: GABAPENTIN 400 MG CAPSULE 800 MG PO ×3 (08:25→19:18)
[2021-07-11] MEDS: ACETAMINOPHEN 325 MG TABLET 650 MG PO (08:26)
--- NOTE | 2021-07-11 09:23 | WPDCNINT ---
Assessment and Plan Assessment and plan (1) Hypotension: Qualifiers: Hypotension type: unspecified hypotension type Qualified Code(s): I95.9 - Hypotension, unspecified Code(s): I95.9 - Hypotension, unspecified Status: Acute Assessment and Plan: Patient hypotensive likely related to decreased oral intake, hypovolemia and dehydration -patient received 3 L of IV fluid bolus with improvement in blood pressures, -patient is currently off dopamine which was on for a very brief period of time. -patient is on ceftriaxone Will questionable UTI, urine cultures have been obtained and pending, low suspicion for UTI -will continue to monitor (2) Alcohol intoxication: Qualifiers: Complication of substance-induced condition: with unspecified complication Qualified Code(s): F10.929 - Alcohol use, unspecified with intoxication, unspecified Code(s): F10.929 - Alcohol use, unspecified with intoxication, unspecified Status: Acute Assessment and Plan: Patient with alcohol intoxication, alcohol levels with 380 admission. Urine tox screen was negative -will start Librium -thiamine and folic acid -continue maintenance IV fluids (3) Pancytopenia: Code(s): D61.818 - Other pancytopenia Status: Acute Assessment and Plan: Pancytopenia likely related to alcohol abuse, intoxication with possible bone marrow suppression -will continue to monitor (4) Protein calorie malnutrition: Code(s): E46 - Unspecified protein-calorie malnutrition Status: Acute Assessment and Plan: Protein calorie malnutrition likely related to anorexia nervosa and decreased oral intake -have encouraged the patient to increase her p.o. intake (5) Hypophosphatemia: Code(s): E83.39 - Other disorders of phosphorus metabolism Status: Acute Assessment and Plan: Replaced phosphorus (6) Hypomagnesemia: Code(s): E83.42 - Hypomagnesemia Status: Acute Assessment and Plan: Replaced magnesium (7) JULIUS (generalized anxiety disorder): Code(s): F41.1 - Generalized anxiety disorder Status: Acute Assessment and Plan: Continue escitalopram, gabapentin (8) Major depressive disorder: Qualifiers: Major depression recurrence: recurrent Active/Remission status: currently active Major depression episode severity: moderate Qualified Code(s): F33.1 - Major depressive disorder, recurrent, moderate Code(s): F32.9 - Major depressive disorder, single episode, unspecified Status: Acute Assessment and Plan: Continue buspirone, bupropion Additional Plan Discussed with patient updated with her condition and plan of care. Code status: Full code Critical care time spent: 42 minute This dictation may have been done utilizing a voice recognition system. Attempts have been made to correct errors. However, there may be uncorrected grammatical, spelling, and recognition errors present. Due to a high probability of clinically significant, life threatening deterioration, the patient required my highest level of preparedness to intervene emergently and I personally spent this critical care time directly and personally managing the patient. This critical care time included obtaining a history; examining the patient; pulse oximetry; ordering and review of studies; arranging urgent treatment with development of a management plan; evaluation of patient's response to treatment; frequent reassessment; and discussions with other providers. It was exclusive of separately billable procedures and treating other patients and teaching time. Please see Assessment and Plan section and the rest of the note for further information on patient assessment and treatment [facility] Records Management Officer Consult Note Consult date: 07/11/21 Time Seen: 07:03 Reason for consult: Hypotension/shock, alcohol abuse, alcohol intoxication, weakness, history of anorexia with decrease
[2021-07-11] MEDS: chlordiazePOXIDE (*CRX) 25 MG CAPSULE 50 MG PO ×3 (10:01→23:18)
--- NOTE | 2021-07-11 10:48 | PC.NURSE ---
This patient, Mily Mai, was transferred to [[id number] ] on 07/11/21 at 1048. Personal belongings sent with patient. Report given to [ AMBROCIO Reardon @ [id number]]. Appropriate documentation sent with patient.
[2021-07-11] MEDS: SODIUM CHLORIDE 0.9% IV 1,000 ML 100 ML IV CONT (13:26)
--- NOTE | 2021-07-11 13:56 | PM.IMPN ---
Progress Note: A&P Assessment and Plan (1) Hypotension: Qualifiers: Hypotension type: unspecified hypotension type Qualified Code(s): I95.9 - Hypotension, unspecified Code(s): I95.9 - Hypotension, unspecified Status: Acute Assessment and Plan: Patient hypotensive likely related to decreased oral intake, hypovolemia and dehydration -patient received 3 L of IV fluid bolus with improvement in blood pressures, -patient is currently off dopamine which was on for a very brief period of time. -patient is on ceftriaxone Will questionable UTI, urine cultures have been obtained and pending, low suspicion for UTI -will continue to monitor 07/11/21 13:56 patient is a 40-year-old female with history of alcoholic abuse presented emergency department with complaint anorexia generalized weakness alcohol intoxication with alcohol level of 380, upon arrival patient was hypotensive and was given 3L IV fluid and briefly placed on dopamine in ICU, her blood pressure now close to normal, clinically patient is stable and will transfer patient out of ICU, patient is placed on CIWA per and started on Librium, thiamine and folic acid, there is also concerned patient may have UTI and being treated with ceftriaxone will follow-up on urine culture and further recommendation to follow. (2) Alcohol intoxication: Qualifiers: Complication of substance-induced condition: with unspecified complication Qualified Code(s): F10.929 - Alcohol use, unspecified with intoxication, unspecified Code(s): F10.929 - Alcohol use, unspecified with intoxication, unspecified Status: Acute Assessment and Plan: Patient with alcohol intoxication, alcohol levels with 380 admission. Urine tox screen was negative -will start Librium -thiamine and folic acid -continue maintenance IV fluids (3) Pancytopenia: Code(s): D61.818 - Other pancytopenia Status: Acute Assessment and Plan: Pancytopenia likely related to alcohol abuse, intoxication with possible bone marrow suppression -will continue to monitor (4) Protein calorie malnutrition: Code(s): E46 - Unspecified protein-calorie malnutrition Status: Acute Assessment and Plan: Protein calorie malnutrition likely related to anorexia nervosa and decreased oral intake -have encouraged the patient to increase her p.o. intake (5) Hypophosphatemia: Code(s): E83.39 - Other disorders of phosphorus metabolism Status: Acute Assessment and Plan: Replaced phosphorus (6) Hypomagnesemia: Code(s): E83.42 - Hypomagnesemia Status: Acute Assessment and Plan: Replaced magnesium (7) JULIUS (generalized anxiety disorder): Code(s): F41.1 - Generalized anxiety disorder Status: Acute Assessment and Plan: Continue escitalopram, gabapentin (8) Major depressive disorder: Qualifiers: Major depression recurrence: recurrent Active/Remission status: currently active Major depression episode severity: moderate Qualified Code(s): F33.1 - Major depressive disorder, recurrent, moderate Code(s): F32.9 - Major depressive disorder, single episode, unspecified Status: Acute Assessment and Plan: Continue buspirone, bupropion Subjective Date/time seen: 07/11/21 13:56 patient is a 40-year-old female with history of alcoholic abuse presented emergency department with complaint anorexia generalized weakness alcohol intoxication with alcohol level of 380, upon arrival patient was hypotensive and was given 3L IV fluid and briefly placed on dopamine in ICU, her blood pressure now close to normal, clinically patient is stable and will transfer patient out of ICU, patient is placed on CIWA per and started on Librium, thiamine and folic acid, there is also concerned patient may have UTI and being treated with ceftriaxone will follow-up on urine culture and further recommendation to follow. R
[2021-07-11] MEDS: LORazepam INJ (*CRX) 2 MG/ML VIAL 1 MG IV PUSH (14:36)
[2021-07-11] MEDS: NEOMYCIN/POLYMYXIN/BACITRACIN OINTMENT PACKET 1 PACKET (18:21)
[2021-07-12] VITALS (8 sets, daily range): BP systolic 98–135; BP diastolic 72–76; PULSE 64–82; RESP 16–18; TEMP 36.8–37.1; O2SAT 100
[2021-07-12] MEDS: chlordiazePOXIDE (*CRX) 25 MG CAPSULE 50 MG PO ×2 (05:24→13:24)
[2021-07-12 06:37] LABS: Hematocrit 32.2 % (37.0-47.0); Hemoglobin 10.7 g/dL (12.0-15.0); Immature Platelet Fraction Pct 4.2 % (0.9-11.2); Mean Corpuscular HGB Conc 33.2 g/dl (32-36); Mean Corpuscular Hemoglobin 32.6 pg (26-34); Mean Corpuscular Volume 98.2 fl (80-100); Mean Platelet Volume 10.5 fl (7.4-10.4); Platelet Count Result 131 k/mm3 (150-375); Red Blood Count 3.28 M/mm3 (4.2-5.4); Red Cell Distribution Width 15.9 % (11.5-14.5); White Blood Count 3.9 K/mm3 (4.5-10.0)
[2021-07-12 06:54] LABS: Anion Gap 1 mmol/L (8-16); Blood Urea Nitrogen 6 mg/dL (7-17); Carbon Dioxide 33 mmol/L (22-30); Chloride 106 mmol/L (98-107); Estimated CRCL calculation 99 ml/min; Estimated Glomerular Filt Rate > 60; Glucose 94 mg/dL (65-110); Magnesium 2.1 mg/dL (1.6-2.3); Potassium 3.6 mmol/L (3.4-5.0); Sodium 140 mmol/L (137-145)
[2021-07-12] MEDS: PANTOPRAZOLE 40 MG TABLET PO (09:09)
[2021-07-12] MEDS: POTASSIUM CHLORIDE 20 MEQ TABLET 40 MEQ PO (09:09)
[2021-07-12] MEDS: FOLIC ACID 1 MG/0.2 ML INJ IV PUSH (09:09)
[2021-07-12] MEDS: busPIRone HCL 5 MG TABLET PO ×2 (09:09→17:08)
[2021-07-12] MEDS: GABAPENTIN 400 MG CAPSULE 800 MG PO ×3 (09:09→17:08)
[2021-07-12] MEDS: SODIUM CHLORIDE 0.9% IV 1,000 ML 100 ML IV CONT ×2 (09:11→16:22)
[2021-07-12] MEDS: THIAMINE HCL 200 MG/2 ML VIAL 100 MG IV PUSH (10:53)
[2021-07-12] MEDS: buPROPion HCL XL (24 HR) 150 MG TABCR 300 MG PO (10:53)
[2021-07-12] MEDS: ESCITALOPRAM OXALATE 10 MG TABLET 20 MG PO (10:53)
--- NOTE | 2021-07-12 15:13 | PM.IMPN ---
Progress Note: A&P Assessment and Plan (1) Hypotension: Qualifiers: Hypotension type: unspecified hypotension type Qualified Code(s): I95.9 - Hypotension, unspecified Code(s): I95.9 - Hypotension, unspecified Status: Acute Assessment and Plan: Patient hypotensive likely related to decreased oral intake, hypovolemia and dehydration -patient received 3 L of IV fluid bolus with improvement in blood pressures, -patient is currently off dopamine which was on for a very brief period of time. -patient is on ceftriaxone Will questionable UTI, urine cultures have been obtained and pending, low suspicion for UTI -will continue to monitor 07/12/21 15:13 07/11 patient is a 40-year-old female with history of alcoholic abuse presented emergency department with complaint anorexia generalized weakness alcohol intoxication with alcohol level of 380, upon arrival patient was hypotensive and was given 3L IV fluid and briefly placed on dopamine in ICU, her blood pressure now close to normal, clinically patient is stable and will transfer patient out of ICU, patient is placed on CIWA per and started on Librium, thiamine and folic acid, there is also concerned patient may have UTI and being treated with ceftriaxone will follow-up on urine culture and further recommendation to follow. 07/12 patient is out of ICU known medical, on CIWA protocol with Librium, states feeling better compared to when she arrived not as anxious, currently patient does not show any sign of DT, will continue present management and monitor with CIWA protocol continue Librium 50 mg every 6 hours total 4 doses and then taper it down to 25 mg q.i.d. from tomorrow. will have a PT OT evaluate the patient, urine culture there is no growth so far will stop antibiotic (2) Alcohol intoxication: Qualifiers: Complication of substance-induced condition: with unspecified complication Qualified Code(s): F10.929 - Alcohol use, unspecified with intoxication, unspecified Code(s): F10.929 - Alcohol use, unspecified with intoxication, unspecified Status: Acute Assessment and Plan: Patient with alcohol intoxication, alcohol levels with 380 admission. Urine tox screen was negative -will start Librium -thiamine and folic acid -continue maintenance IV fluids (3) Pancytopenia: Code(s): D61.818 - Other pancytopenia Status: Acute Assessment and Plan: Pancytopenia likely related to alcohol abuse, intoxication with possible bone marrow suppression -will continue to monitor (4) Protein calorie malnutrition: Code(s): E46 - Unspecified protein-calorie malnutrition Status: Acute Assessment and Plan: Protein calorie malnutrition likely related to anorexia nervosa and decreased oral intake -have encouraged the patient to increase her p.o. intake (5) Hypophosphatemia: Code(s): E83.39 - Other disorders of phosphorus metabolism Status: Acute Assessment and Plan: Replaced phosphorus (6) Hypomagnesemia: Code(s): E83.42 - Hypomagnesemia Status: Acute Assessment and Plan: Replaced magnesium (7) JULIUS (generalized anxiety disorder): Code(s): F41.1 - Generalized anxiety disorder Status: Acute Assessment and Plan: Continue escitalopram, gabapentin (8) Major depressive disorder: Qualifiers: Major depression recurrence: recurrent Active/Remission status: currently active Major depression episode severity: moderate Qualified Code(s): F33.1 - Major depressive disorder, recurrent, moderate Code(s): F32.9 - Major depressive disorder, single episode, unspecified Status: Acute Assessment and Plan: Continue buspirone, bupropion Subjective Date/time seen: 07/12/21 15:13 07/11 patient is a 40-year-old female with history of alcoholic abuse presented emergency department with complaint anorexia generalized weakness alcohol intoxication wit
[2021-07-12] MEDS: LORazepam INJ (*CRX) 2 MG/ML VIAL 1 MG IV PUSH ×2 (16:21→20:38)
[2021-07-12] MEDS: chlordiazePOXIDE (*CRX) 25 MG CAPSULE PO (17:08)
[2021-07-13] VITALS: BP 135/73; PULSE 82
[2021-07-13] MEDS: chlordiazePOXIDE (*CRX) 25 MG CAPSULE PO (03:44)
[2021-07-13 04:00] VITALS: BP 135/73; PULSE 82
[2021-07-13 05:03] VITALS: BP 100/72; PULSE 68; RESP 18; TEMP 36.1; O2SAT 100
[2021-07-13 06:27] LABS: Hematocrit 29.3 % (37.0-47.0); Hemoglobin 9.9 g/dL (12.0-15.0); Mean Corpuscular HGB Conc 33.8 g/dl (32-36); Mean Corpuscular Hemoglobin 32.1 pg (26-34); Mean Corpuscular Volume 95.1 fl (80-100); Mean Platelet Volume 10.8 fl (7.4-10.4); Platelet Count Result 116 k/mm3 (150-375); Red Blood Count 3.08 M/mm3 (4.2-5.4); Red Cell Distribution Width 15.7 % (11.5-14.5); White Blood Count 2.7 K/mm3 (4.5-10.0)
[2021-07-13 06:53] LABS: Anion Gap 4 mmol/L (8-16); Blood Urea Nitrogen 4 mg/dL (7-17); Calcium 8.1 mg/dL (8.4-10.2); Carbon Dioxide 33 mmol/L (22-30); Chloride 102 mmol/L (98-107); Estimated CRCL calculation 121 ml/min; Estimated Glomerular Filt Rate > 60; Glucose 93 mg/dL (65-110); Potassium 2.7 mmol/L (3.4-5.0); Sodium 139 mmol/L (137-145)
[2021-07-13] MEDS: SODIUM CHLORIDE 0.9% IV 1,000 ML 100 ML IV CONT ×2 (08:05→21:59)
[2021-07-13] MEDS: PANTOPRAZOLE 40 MG TABLET PO (08:06)
[2021-07-13] MEDS: ESCITALOPRAM OXALATE 10 MG TABLET 20 MG PO (08:06)
[2021-07-13] MEDS: buPROPion HCL XL (24 HR) 150 MG TABCR 300 MG PO (08:06)
[2021-07-13] MEDS: GABAPENTIN 400 MG CAPSULE 800 MG PO ×3 (08:06→17:57)
[2021-07-13] MEDS: THIAMINE HCL 200 MG/2 ML VIAL 100 MG IV PUSH (08:07)
[2021-07-13] MEDS: FOLIC ACID 1 MG/0.2 ML INJ IV PUSH (08:10)
[2021-07-13] MEDS: POTASSIUM CHLORIDE 20 MEQ TABLET 40 MEQ PO (09:39)
[2021-07-13] MEDS: busPIRone HCL 5 MG TABLET PO ×2 (09:40→17:58)
[2021-07-13] MEDS: LORazepam INJ (*CRX) 2 MG/ML VIAL 1 MG IV PUSH ×3 (11:23→22:00)
--- NOTE | 2021-07-13 11:26 | PCNFU ---
Nutrition Follow-Up Complete: Inadequate oral intake related to anorexia, ETOH abuse as evidenced by BMI of 16.7 with documented 18% weight loss x 4 months. Goal:Patient to consume 50% of meals/supplements or greater. Patient has met current goal. No new goal to report. Pt current nutrition is Regular with Ensure Compact BID. Last recorded weight is 51 kg, up from 45.5 kg on admit. Bowel Motility:No BM to report. Labs Reviewed:Cr 0.4,ALb 2.7,BUN 4,Hgb 9.9,Hct 29.3 Meds Noted:Folic Acid, Thiamine, Ativan,Neurontin, Buspar, Lexapro, Wellbutrin. Additional Notes: Nutrition follow up. Patient seen today, tolerated regular diet. Eating 100% of meals. Diet supplements of Ensure compact providing an additional 220 kcals and 9 gms protein. Agree with diet orders. Skin:WNL. Monitoring: Follow up every 7 days.
--- NOTE | 2021-07-13 13:57 | PM.IMPN ---
Progress Note: A&P Assessment and Plan (1) Hypotension: Qualifiers: Hypotension type: unspecified hypotension type Qualified Code(s): I95.9 - Hypotension, unspecified Code(s): I95.9 - Hypotension, unspecified Status: Acute Assessment and Plan: Patient hypotensive likely related to decreased oral intake, hypovolemia and dehydration -patient received 3 L of IV fluid bolus with improvement in blood pressures, -patient is currently off dopamine which was on for a very brief period of time. -patient is on ceftriaxone Will questionable UTI, urine cultures have been obtained and pending, low suspicion for UTI -will continue to monitor 07/13/21 13:57 07/11 patient is a 40-year-old female with history of alcoholic abuse presented emergency department with complaint anorexia generalized weakness alcohol intoxication with alcohol level of 380, upon arrival patient was hypotensive and was given 3L IV fluid and briefly placed on dopamine in ICU, her blood pressure now close to normal, clinically patient is stable and will transfer patient out of ICU, patient is placed on CIWA per and started on Librium, thiamine and folic acid, there is also concerned patient may have UTI and being treated with ceftriaxone will follow-up on urine culture and further recommendation to follow. 07/12 patient is out of ICU known medical, on CIWA protocol with Librium, states feeling better compared to when she arrived not as anxious, currently patient does not show any sign of DT, will continue present management and monitor with CIWA protocol continue Librium 50 mg every 6 hours total 4 doses and then taper it down to 25 mg q.i.d. from tomorrow. will have a PT OT evaluate the patient, urine culture there is no growth so far will stop antibiotic. 07/13 patient remains clinically stable on CIWA protocol, with Librium 25 mg every 6 hours PRN, will continue to monitor, if remains clinically stable will discharge the patient tomorrow, from here patient will go to alcohol rehab center in [place]. patient with hypokalemia most likely secondary poor p.o. intake alcohol abuse, will monitor and supplement, will have PT OT evaluate the patient and further recommendation to follow (2) Alcohol intoxication: Qualifiers: Complication of substance-induced condition: with unspecified complication Qualified Code(s): F10.929 - Alcohol use, unspecified with intoxication, unspecified Code(s): F10.929 - Alcohol use, unspecified with intoxication, unspecified Status: Acute Assessment and Plan: Patient with alcohol intoxication, alcohol levels with 380 admission. Urine tox screen was negative -will start Librium -thiamine and folic acid -continue maintenance IV fluids (3) Pancytopenia: Code(s): D61.818 - Other pancytopenia Status: Acute Assessment and Plan: Pancytopenia likely related to alcohol abuse, intoxication with possible bone marrow suppression -will continue to monitor (4) Protein calorie malnutrition: Code(s): E46 - Unspecified protein-calorie malnutrition Status: Acute Assessment and Plan: Protein calorie malnutrition likely related to anorexia nervosa and decreased oral intake -have encouraged the patient to increase her p.o. intake (5) Hypophosphatemia: Code(s): E83.39 - Other disorders of phosphorus metabolism Status: Acute Assessment and Plan: Replaced phosphorus (6) Hypomagnesemia: Code(s): E83.42 - Hypomagnesemia Status: Acute Assessment and Plan: Replaced magnesium (7) JULIUS (generalized anxiety disorder): Code(s): F41.1 - Generalized anxiety disorder Status: Acute Assessment and Plan: Continue escitalopram, gabapentin (8) Major depressive disorder: Qualifiers: Major depression recurrence: recurrent Active/Remission status: currently active Major depression episode severity: moderate Qualified C
[2021-07-13 14:36] VITALS: BP 110/75; PULSE 88; RESP 16; TEMP 37; O2SAT 98
[2021-07-13 15:23] LABS: Anion Gap 4 mmol/L (8-16); Blood Urea Nitrogen 6 mg/dL (7-17); Calcium 8.4 mg/dL (8.4-10.2); Carbon Dioxide 37 mmol/L (22-30); Chloride 100 mmol/L (98-107); Estimated CRCL calculation 99 ml/min; Estimated Glomerular Filt Rate > 60; Glucose 74 mg/dL (65-110); Potassium 3.2 mmol/L (3.4-5.0); Sodium 141 mmol/L (137-145)
[2021-07-13] MEDS: CALCIUM CARBONATE (TUMS) 500 MG (200 MG ELEMENTAL) PO (16:07)
[2021-07-13 16:49] LABS: EDCOVIDSCREEN Negative (Negative)
[2021-07-13 20:00] VITALS: BP 110/75; PULSE 82; PULSE 88; RESP 16; O2SAT 98
[2021-07-13 22:00] VITALS: BP 127/48; PULSE 67; RESP 21; TEMP 36.2; O2SAT 100
[2021-07-14] VITALS: BP 127/48; PULSE 82
[2021-07-14 04:00] VITALS: BP 127/48; PULSE 82
[2021-07-14 06:00] VITALS: BP 121/83; PULSE 57; RESP 21; TEMP 36.1; O2SAT 100
[2021-07-14 06:19] LABS: Hematocrit 28.7 % (37.0-47.0); Hemoglobin 9.8 g/dL (12.0-15.0); Immature Platelet Fraction Pct 4.4 % (0.9-11.2); Mean Corpuscular HGB Conc 34.1 g/dl (32-36); Mean Corpuscular Hemoglobin 32.6 pg (26-34); Mean Corpuscular Volume 95.3 fl (80-100); Mean Platelet Volume 10.9 fl (7.4-10.4); Platelet Count Result 124 k/mm3 (150-375); Red Blood Count 3.01 M/mm3 (4.2-5.4); Red Cell Distribution Width 16.1 % (11.5-14.5); White Blood Count 2.6 K/mm3 (4.5-10.0)
[2021-07-14 06:33] LABS: Anion Gap 4 mmol/L (8-16); Blood Urea Nitrogen 5 mg/dL (7-17); Carbon Dioxide 33 mmol/L (22-30); Chloride 101 mmol/L (98-107); Estimated CRCL calculation 121 ml/min; Estimated Glomerular Filt Rate > 60; Glucose 85 mg/dL (65-110); Magnesium 1.8 mg/dL (1.6-2.3); Potassium 2.9 mmol/L (3.4-5.0); Sodium 138 mmol/L (137-145)
[2021-07-14] MEDS: LORazepam INJ (*CRX) 2 MG/ML VIAL 1 MG IV PUSH ×3 (07:59→20:33)
[2021-07-14] MEDS: THIAMINE HCL 200 MG/2 ML VIAL 100 MG IV PUSH (08:00)
[2021-07-14] MEDS: buPROPion HCL XL (24 HR) 150 MG TABCR 300 MG PO (08:00)
[2021-07-14] MEDS: ESCITALOPRAM OXALATE 10 MG TABLET 20 MG PO (08:00)
[2021-07-14] MEDS: busPIRone HCL 5 MG TABLET PO ×2 (08:00→16:23)
[2021-07-14] MEDS: GABAPENTIN 400 MG CAPSULE 800 MG PO ×3 (08:00→16:23)
[2021-07-14] MEDS: PANTOPRAZOLE 40 MG TABLET PO (08:01)
[2021-07-14] MEDS: FOLIC ACID 1 MG/0.2 ML INJ IV PUSH (08:07)
[2021-07-14] MEDS: POTASSIUM CHLORIDE 20 MEQ TABLET 40 MEQ PO ×2 (08:54→16:33)
[2021-07-14 14:00] VITALS: BP 91/75; PULSE 89; RESP 14; TEMP 36.9; O2SAT 99
[2021-07-14 14:05] LABS: Potassium 3.5 mmol/L (3.4-5.0)
[2021-07-14] MEDS: NICOTINE (*PBKC) 14 MG PATCH 1 PATCH TRANSDERM (16:21)
[2021-07-14 19:36] VITALS: BP 100/66; PULSE 89; RESP 18; TEMP 36.5; O2SAT 98
[2021-07-14 20:00] VITALS: PULSE 90
[2021-07-14] MEDS: QUEtiapine FUMARATE 25 MG TABLET 50 MG PO (22:59)
[2021-07-15] VITALS: PULSE 78
[2021-07-15 04:14] VITALS: BP 105/59; PULSE 84; RESP 18; TEMP 36.6; O2SAT 98
[2021-07-15 06:10] LABS: Hematocrit 29.9 % (37.0-47.0); Mean Corpuscular HGB Conc 33.4 g/dl (32-36); Mean Corpuscular Hemoglobin 31.8 pg (26-34); Mean Corpuscular Volume 95.2 fl (80-100); Mean Platelet Volume 10.5 fl (7.4-10.4); Platelet Count Result 159 k/mm3 (150-375); Red Blood Count 3.14 M/mm3 (4.2-5.4); Red Cell Distribution Width 16.6 % (11.5-14.5); White Blood Count 2.1 K/mm3 (4.5-10.0)
[2021-07-15 06:23] LABS: Anion Gap 3 mmol/L (8-16); Blood Urea Nitrogen 6 mg/dL (7-17); Calcium 8.4 mg/dL (8.4-10.2); Carbon Dioxide 32 mmol/L (22-30); Chloride 106 mmol/L (98-107); Estimated CRCL calculation 97 ml/min; Estimated Glomerular Filt Rate > 60; Glucose 73 mg/dL (65-110); Potassium 4.1 mmol/L (3.4-5.0); Sodium 141 mmol/L (137-145)
[2021-07-15] MEDS: busPIRone HCL 5 MG TABLET PO (08:07)
[2021-07-15] MEDS: buPROPion HCL XL (24 HR) 150 MG TABCR 300 MG PO (08:07)
[2021-07-15] MEDS: ESCITALOPRAM OXALATE 10 MG TABLET 20 MG PO (08:07)
[2021-07-15] MEDS: GABAPENTIN 400 MG CAPSULE 800 MG PO (08:07)
[2021-07-15] MEDS: THIAMINE HCL 200 MG/2 ML VIAL 100 MG IV PUSH (08:07)
[2021-07-15] MEDS: PANTOPRAZOLE 40 MG TABLET PO (08:07)
--- NOTE | 2021-07-15 08:14 | P.DS_ITS ---
DS: Admitting Diagnosis Discharge Date 07/15/2021 Admitting Diagnosis Alcoholism DS: Discharge Diagnosis Discharge Diagnosis (1) Hypotension: Qualifiers: Hypotension type: unspecified hypotension type Qualified Code(s): I95.9 - Hypotension, unspecified Code(s): I95.9 - Hypotension, unspecified Status: Acute Assessment and Plan: Patient hypotensive likely related to decreased oral intake, hypovolemia and dehydration -patient received 3 L of IV fluid bolus with improvement in blood pressures, -patient is currently off dopamine which was on for a very brief period of time. -patient is on ceftriaxone Will questionable UTI, urine cultures have been obtained and pending, low suspicion for UTI -will continue to monitor 07/13/21 13:57 07/11 patient is a 40-year-old female with history of alcoholic abuse presented emergency department with complaint anorexia generalized weakness alcohol intoxication with alcohol level of 380, upon arrival patient was hypotensive a nd was given 3L IV fluid and briefly placed on dopamine in ICU, her blood pressure now close to normal, clinically patient is stable and will transfer patient out of ICU, patient is placed on CIWA per and started on Librium, thiamine and folic acid, there is also concerned patient may have UTI and being treated with ceftriaxone will follow-up on urine culture and further recommendation to follow. 07/12 patient is out of ICU known medical, on CIWA protocol with Librium, states feeling better compared to when she arrived not as anxious, currently patient does not show any sign of DT, will continue present management and monitor with CIWA protocol continue Librium 50 mg every 6 hours total 4 doses and then taper it down to 25 mg q.i.d. from tomorrow. will have a PT OT evaluate the patient, urine culture there is no growth so far will stop antibiotic. 07/13 patient remains clinically stable on CIWA protocol, with Librium 25 mg every 6 hours PRN, will continue to monitor, if remains clinically stable will discharge the patient tomorrow, from here patient will go to alcohol rehab center in [place]. patient with hypokalemia most likely secondary poor p.o. intake alcohol abuse, will monitor and supplement, will have PT OT evaluate the patient and further recommendation to follow (2) Alcohol intoxication: Qualifiers: Complication of substance-induced condition: with unspecified complication Qualified Code(s): F10.929 - Alcohol use, unspecified with intoxication, unspecified Code(s): F10.929 - Alcohol use, unspecified with intoxication, unspecified Status: Acute Assessment and Plan: Patient with alcohol intoxication, alcohol levels with 380 admission. Urine tox screen was negative -will start Librium -thiamine and folic acid -continue maintenance IV fluids (3) Pancytopenia: Code(s): D61.818 - Other pancytopenia Status: Acute Assessment and Plan: Pancytopenia likely related to alcohol abuse, intoxication with possible bone marrow suppression -will continue to monitor (4) Protein calorie malnutrition: Code(s): E46 - Unspecified protein-calorie malnutrition Status: Acute Assessment and Plan: Protein calorie malnutrition likely related to anorexia nervosa and decreased oral intake -have encouraged the patient to increase her p.o. intake (5) Hypophosphatemia: Code(s): E83.39 - Other disorders of phosphorus metabolism Status: Acute Assessment and Plan: Replaced phosphorus (6) Hypomagnesemia: Code(s): E83.42 - Hypomagnesemia Status: Acute
[2021-07-15] MEDS: LORazepam INJ (*CRX) 2 MG/ML VIAL 1 MG IV PUSH (08:17)
[2021-07-15] MEDS: NICOTINE (*PBKC) 14 MG PATCH 1 PATCH TRANSDERM (08:18)
--- NOTE | 2021-08-06 18:51 | PM.IMPN ---
Progress Note: A&P Assessment and Plan (1) Hypotension: Qualifiers: Hypotension type: unspecified hypotension type Qualified Code(s): I95.9 - Hypotension, unspecified Code(s): I95.9 - Hypotension, unspecified Status: Acute Assessment and Plan: Patient hypotensive likely related to decreased oral intake, hypovolemia and dehydration -patient received 3 L of IV fluid bolus with improvement in blood pressures, -patient is currently off dopamine which was on for a very brief period of time. -patient is on ceftriaxone Will questionable UTI, urine cultures have been obtained and pending, low suspicion for UTI -will continue to monitor 07/14/202107/11 patient is a 40-year-old female with history of alcoholic abuse presented emergency department with complaint anorexia generalized weakness alcohol intoxication with alcohol level of 380, upon arrival patient was hypotensive and was given 3L IV fluid and briefly placed on dopamine in ICU, her blood pressure now close to normal, clinically patient is stable and will transfer patient out of ICU, patient is placed on CIWA per and started on Librium, thiamine and folic acid, there is also concerned patient may have UTI and being treated with ceftriaxone will follow-up on urine culture and further recommendation to follow. 07/12 patient is out of ICU known medical, on CIWA protocol with Librium, states feeling better compared to when she arrived not as anxious, currently patient does not show any sign of DT, will continue present management and monitor with CIWA protocol continue Librium 50 mg every 6 hours total 4 doses and then taper it down to 25 mg q.i.d. from tomorrow. will have a PT OT evaluate the patient, urine culture there is no growth so far will stop antibiotic. 07/13 patient remains clinically stable on CIWA protocol, with Librium 25 mg every 6 hours PRN, will continue to monitor, if remains clinically stable will discharge the patient tomorrow, from here patient will go to alcohol rehab center in [place]. patient with hypokalemia most likely secondary poor p.o. intake alcohol abuse, will monitor and supplement, will have PT OT evaluate the patient and further recommendation to follow 07/14 Patient remains clinically stable and plan was to discharge today however her potassium in 2.9, will supplement and rechck in am and plan. (2) Alcohol intoxication: Qualifiers: Complication of substance-induced condition: with unspecified complication Qualified Code(s): F10.929 - Alcohol use, unspecified with intoxication, unspecified Code(s): F10.929 - Alcohol use, unspecified with intoxication, unspecified Status: Acute Assessment and Plan: Patient with alcohol intoxication, alcohol levels with 380 admission. Urine tox screen was negative -will start Librium -thiamine and folic acid -continue maintenance IV fluids (3) Pancytopenia: Code(s): D61.818 - Other pancytopenia Status: Acute Assessment and Plan: Pancytopenia likely related to alcohol abuse, intoxication with possible bone marrow suppression -will continue to monitor (4) Protein calorie malnutrition: Code(s): E46 - Unspecified protein-calorie malnutrition Status: Acute Assessment and Plan: Protein calorie malnutrition likely related to anorexia nervosa and decreased oral intake -have encouraged the patient to increase her p.o. intake (5) Hypophosphatemia: Code(s): E83.39 - Other disorders of phosphorus metabolism Status: Acute Assessment and Plan: Replaced phosphorus (6) Hypomagnesemia: Code(s): E83.42 - Hypomagnesemia Status: Acute Assessment and Plan: Replaced magnesium (7) JULIUS (generalized anxiety disorder): Code(s): F41.1 - Generalized anxiety disorder Status: Acute Assessment and Plan: Continue escitalopram, gabapentin (8) Major depressive disorder: Qualifiers:
== END 2021-07-15 09:45 | disposition home or self-care (01) | DRG 641 ==
LOC: ANHED 07-11 00:20 → ANHICU 07-11 01:28 → ANH3MED 07-11 10:49
PROVIDERS: Physician Assistant; Admitting Provider Internal Medicine; Emergency Provider Emergency Medicine; PCP Family Medicine; Visit Provider Family Medicine
DX: E86.0 Dehydration (principal); Z68.1 Body mass index [BMI] 19.9 or less, adult; F50.00 Anorexia nervosa, unspecified; F33.1 Major depressive disorder, recurrent, moderate; D61.818 Other pancytopenia; E46 Unspecified protein-calorie malnutrition; I95.9 Hypotension, unspecified; E87.6 Hypokalemia; E86.1 Hypovolemia; F10.129 Alcohol abuse with intoxication, unspecified; Y90.8 Blood alcohol level of 240 mg/100 ml or more; Z23 Encounter for immunization; Z20.822 Contact with and (suspected) exposure to COVID-19; F41.1 Generalized anxiety disorder; E83.42 Hypomagnesemia; F17.210 Nicotine dependence, cigarettes, uncomplicated; F98.8 Other specified behavioral and emotional disorders with onset usually occurring in childhood and adolescence; E83.39 Other disorders of phosphorus metabolism; G47.9 Sleep disorder, unspecified; F40.10 Social phobia, unspecified; Z79.899 Other long term (current) drug therapy; Z86.16 Personal history of COVID-19
CPT/HCPCS: 36415; 36556; 80048; 80053; 80307; 81001; 81025; 83605; 83690; 83735; 84100; 84132; 84443; 85025; 85027; 85055; 85610; 85730; 87086; 87088; 87426; 90471; 90653; 93005; 96361; 96365; 96366; 96367; 96374; 96375; 96376; 99285; A9270; C1751; C9803; G0008; G0378; J0696; J1265; J2060; J2405; J3411; J3475; J3480; J7030; J7120